=== PATIENT | female | born 1985 | race Caucasian/White ===

== ENCOUNTER 2018-10-09 22:44 | Emergency (ER) | payer BC ==
[~2018-10-09] VITALS: Ht 165.1 cm; Wt 68.0 kg
[2018-10-09 23:02] LABS: BILIRUBIN,URINE NEGATIVE (NEG); CLARITY,URINE CLEAR; COLOR,URINE YELLOW; NITRITE,URINE NEGATIVE (NEG); PH,URINE 5.5; PROTEIN,URINE NEGATIVE (NEG-TRACE); UROBILINOGEN,URINE 0.2 mg/dL (0.2 mg/dL)
[2018-10-09 23:07] LABS: BACTERIA,URINE FEW /HPF (0-FEW); RBC,URINE OCC /HPF (0-2); SQUAMOUS EPITHELIAL CELL,UR MOD /LPF
[2018-10-09] MEDS ORDERED: IV NORMAL SALINE 1000ML BAG 1,000 ML IV SCH (23:08)
[2018-10-09] MEDS ORDERED: fentaNYL PF VIAL 100 MCG/2 ML VIAL IV ONE (23:15)
[2018-10-09] MEDS ORDERED: ONDANSETRON PF 4 MG/2 ML VIAL. IV ONE (23:15)
--- NOTE | 2018-10-09 23:29 | PHYS DOC ---
Past Medical History Past Medical History: No Pertinent History (INGA MERCADO APRN) Past Surgical History: (INGA MERCADO APRN) Alcohol Use: Rarely Drug Use: None (INGA MERCADO APRN) Adult General Chief Complaint Chief Complaint: ABDOMINAL PAIN HPI HPI Patient is a 32 year old female who presents with was in the shower tonight she was having right flank pain wrapping around to her right abdomen that was sharp and shooting. Patient states the pain will intensify and then less than at times. Patient's ring her pain an 8 out of 10. (INGA MERCADO APRN) Review of Systems Review of Systems Constitutional: Denies fever or chills [] Eyes: Denies change in visual acuity, redness, or eye pain [] HENT: Denies nasal congestion or sore throat [] Respiratory: Denies cough or shortness of breath [] Cardiovascular: No additional information not addressed in HPI [] GI: Right upper and mid abdominal pain, denies nausea, vomiting, bloody stools or diarrhea [] : Right flank pain. Denies dysuria or hematuria [] Musculoskeletal: Denies back pain or joint pain [] Integument: Denies rash or skin lesions [] Neurologic: Denies headache, focal weakness or sensory changes [] Endocrine: Denies polyuria or polydipsia [] All other systems were reviewed and found to be within normal limits, except as documented in this note. (INGA MERCADO APRN) Current Medications Current Medications Current Medications Medications (Trade) Dose Ordered Sig/Sergei Start Time Stop Time Status Last Admin Dose Admin Fentanyl Citrate (Fentanyl 2ml Vial) 50 mcg 1X ONCE 10/10/18 00:45 10/10/18 00:46 DC 10/10/18 00:45 50 MCG Ondansetron HCl (Zofran) 4 mg 1X ONCE 10/09/18 23:15 10/09/18 23:16 DC 10/09/18 23:46 4 MG Sodium Chloride 1,000 ml @ 1,000 mls/hr Q1H 10/09/18 23:08 10/10/18 00:07 DC 10/09/18 23:46 1,000 MLS/HR (ALFREDO ESTES DO) Allergies Allergies Allergies Coded Allergies Type Severity Reaction Last Updated Verified naproxen Allergy Intermediate facial swelling 11/11/13 No (ALFREDO ESTES DO) Physical Exam Physical Exam Constitutional: Well developed, well nourished, no acute distress, non-toxic appearance. [] HENT: Normocephalic, atraumatic, bilateral external ears normal, oropharynx moist, no oral exudates, nose normal. [] Eyes: PERRLA, EOMI, conjunctiva normal, no discharge. [] Neck: Normal range of motion, no tenderness, supple, no stridor. [] Cardiovascular:Heart rate regular rhythm, no murmur [] Lungs & Thorax: Bilateral breath sounds clear to auscultation [] Abdomen: Bowel sounds normal, soft, Right upper and mid tenderness, no masses, no pulsatile masses. [] Skin: Warm, dry, no erythema, no rash. [] Back: No tenderness, no CVA tenderness. [] Extremities: No tenderness, no cyanosis, no clubbing, ROM intact, no edema. [] Neurologic: Alert and oriented X 3, normal motor function, normal sensory function, no focal deficits noted. [] Psychologic: Affect normal, judgement normal, mood normal. [] (INGA MERCADO APRN) Current Patient Data Vital Signs Vital Signs Date Time Temp Pulse Resp B/P (MAP) Pulse Ox O2 Delivery O2 Flow Rate FiO2 10/10/18 00:45 18 99 Room Air 10/10/18 00:15 86 99/64 (76) 10/09/18 23:10 98.2 98.2 (ALFREDO ESTES DO) Lab Values Laboratory Tests Test 10/09/18 13:35 10/09/18 22:55 10/09/18 22:57 White Blood Count 13.8 x10^3/uL (4.0-11.0) H Red Blood Count 4.35 x10^6/uL (3.50-5.40) Hemoglobin 12.7 g/dL (12.0-15.5) Hematocrit 38.2 % (36.0-47.0) Mean Corpuscular Volume 88 fL (79-100) Mean Corpuscular Hemoglobin 29 pg (25-35) Mean Corpuscular Hemoglobin Concent 33 g/dL (31-37) Red Cell Distribution Width 14.6 % (11.5-14.5) H Platelet Count 199 x10^3/uL (140-400) Neutrophils (%) (Auto) 48 % (31-73) Lymphocytes (%) (Auto) 39 % (24-48) Monocytes (%) (Auto) 5 % (0-9) Eosinophils (%) (Auto) 8 % (0-3) H Basophils (%) (Auto) 1 % (0-3) Neutrophils # (Auto) 6.6 x10^3/uL (1.8-7.7) Lymphocytes # (Auto) 5.4 x10^3/uL (1.0-4.8) H Monocytes # (Auto) 0.7 x10^3/uL (0.0-1.1) Eosinophils # (Auto) 1.1 x10^3/uL (0.0-0.7) H Basophils # (Auto) 0.1 x10^3/uL (0.0-0.2) Segmented Neutrophils % 48 % (35-66) Lymphocytes % 42 % (24-48) Monocytes % 3 % (0-10) Eosinophils % 7 % (0-5) H Platelet Estimate Adequate (ADEQUATE) Giant Platelets Occ Sodium Level 137 mmol/L (136-145) Potassium Level 3.9 mmol/L (3.5-5.1) Chloride Level 102 mmol/L (98-107) Carbon Dioxide Level 29 mmol/L (21-32) Anion Gap 6 (6-14) Blood Urea Nitrogen 12 mg/dL (7-20) Creatinine 0.9 mg/dL (0.6-1.0) Estimated GFR (Cockcroft-Gault) 71.7 BUN/Creatinine Ratio 13 (6-20) Glucose Level 84 mg/dL (70-99) Calcium Level 9.1 mg/dL (8.5-10.1) Total Bilirubin 0.2 mg/dL (0.2-1.0) Aspartate Amino Transferase (AST) 16 U/L (15-37) Alanine Aminotransferase (ALT) 22 U/L (14-59) Alkaline Phosphatase 86 U/L (46-116) Total Protein 7.3 g/dL (6.4-8.2) Albumin 3.8 g/dL (3.4-5.0) Albumin/Globulin Ratio 1.1 (1.0-1.7) Urine Collection Type Unknown Urine Color Yellow Urine Clarity Clear Urine pH 5.5 Urine Specific [place] 1.010 Urine Protein Negative mg/dL (NEG-TRACE) Urine Glucose (UA) Negative mg/dL (NEG) Urine Ketones (Stick) Negative mg/dL (NEG) Urine Blood Large (NEG) Urine Nitrite Negative (NEG) Urine Bilirubin Negative (NEG) Urine Urobilinogen Dipstick 0.2 mg/dL (0.2 mg/dL) Urine Leukocyte Esterase Trace (NEG) Urine RBC Occ /HPF (0-2) Urine WBC 1-4 /HPF (0-4) Urine Squamous Epithelial Cells Mod /LPF Urine Bacteria Few /HPF (0-FEW) Urine Mucus Slight /LPF POC Urine HCG, Qualitative Hcg negative (Negative) Laboratory Tests 10/09/18 13:35 Laboratory Tests 10/09/18 13:35 (ALFREDO ESTES DO) EKG EKG [] (INGA MERCADO APRN) Radiology/Procedures Radiology/Procedures [] (INGA MERCADO APRN) Impressions: [facility] [address] [place] [address] IMAGING REPORT Signed PATIENT: JACKIE PINTO ACCOUNT: [id number] : 1985 LOCATION: ER AGE: 32 SEX: F EXAM STATUS: REG ER ORD. PHYSICIAN: INGA MERCADO APRN REASON: right flank pain, right abd pain PROCEDURE: CT ABDOMEN PELVIS WO CONTRAST EXAM: CT Abdomen and Pelvis without IV contrast CLINICAL HISTORY: Right flank pain, right abdominal pain COMPARISON: none TECHNIQUE: Helical CT of the abdomen and pelvis without intravenous contrast. Axial, coronal and sagittal reformatted images were generated. PQRS compliance statement - One or more of the following individualized dose reduction techniques were utilized for this study: 1. Automated exposure control 2. Adjustment of the mA and/or kV according to patient size 3. Use of iterative reconstruction technique FINDINGS: Lack of intravenous contrast limits evaluation of solid organs, vasculature, and lymph nodes. Lower chest: Lung bases are clear Abdomen and Pelvis: A 1 cm inferior right hepatic lobe hypodense lesion measures greater than simple fluid, can be further assessed by ultrasound. Liver measures 21 cm in length. Spleen is unremarkable. Adrenal glands are normal. Pancreas is unremarkable. Gallbladder is normal. No biliary ductal dilatation. Kidneys are normal in size and shape. No renal tract calculus. No hydronephrosis or hydroureter. No definite renal lesion. Bladder is unremarkable. Moderate to large volume colonic stool content is seen. No small or large bowel dilatation. Appendix is normal. No abdominal or pelvic ascites. No abdominal or pelvic lymphadenopathy. Bones: Osseous structures are unremarkable. IMPRESSION: 1. No renal tract calculus. 2. No hydronephrosis or hydroureter. 3. No evidence of bowel obstruction. 4. Appendix is normal in appearance. 5. A 1 cm inferior right hepatic lobe hypodense lesion measures greater than simple fluid, can be further assessed by ultrasound. Electronically signed by: Cam Ponce MD (10/10/2018 12:40 AM) [facility] DICTATED and SIGNED BY: CAM PONCE MD DATE: 10/10/18 0040 (INGA MERCADO APRN) Course & Med Decision Making Course & Med Decision Making Patient is a 32 year old female who presents with was in the shower tonight she was having right flank pain wrapping around to her right abdomen that was sharp and shooting. Patient states the pain will intensify and then less than at times. Patient's ring her pain an 8 out of 10. She states it is hard to sit or lay down. No CVA tenderness. Abdomen is tender to the right upper and lower side. Patient denies nausea, vomiting, diarrhea, constipation, shortness of air, chest pain, dysuria. Lungs are clear to auscultation lobes. She is afebrile and vital signs are within normal limits. No extremity swelling. Skin pink warm and dry. Ambulatory with a steady gait. Mucous membranes are moist. Alert and oriented. PERRLA. CT ABD PELV shows: 1. No renal tract calculus. 2. No hydronephrosis or hydroureter. 3. No evidence of bowel obstruction. 4. Appendix is normal in appearance. 5. A 1 cm inferior right hepatic lobe hypodense lesion measures greater than simple fluid, can be further assessed by ultrasound. Blood work unremarkable. Urinalysis shows no infection but is sent for culture. Patient to follow up with her doctor for the incidental findings of the Liver lesion. Patient to be treated for constipation as the CT stated that she had a large amount of stool in the colon. (INGA MERCADO APRN) Dragon Disclaimer Dragon Disclaimer This electronic medical record was generated, in whole or in part, using a voice recognition dictation system. (INGA MERCADO APRN) Departure Departure Impression: Primary Impression: Constipation Disposition: HOME, SELF-CARE Condition: STABLE Referrals: NO PCP (PCP) Patient Instructions: Constipation, Adult Additional Instructions: Follow up with your primary care provider. Drink plenty of fluids. Scripts Magnesium Citrate (MAGNESIUM CITRATE) 296 Ml Solution 296 ML PO ONCE, #296 ML Prov: INGA MERCADO APRN 10/10/18 Attending Signature Attending Signature I have reviewed the PA/OILER HELPER's note and plan of care. I was available for consultation as needed during the patient's visit in the emergency department. I agree with the clinical impression, plan, and disposition. (ALFREDO ESTES DO) Problem Qualifiers Primary Impression: Constipation Constipation type: unspecified constipation type Qualified Codes: K59.00 - Constipation, unspecified INGA MERCADO APRN Oct 09, 2018 23:29 ALFREDO ESTES DO Oct 11, 2018 04:20
[2018-10-09 23:46] LABS: BASO # 0.1 x10^3/uL (0.0-0.2); BASO % 1 % (0-3); EOS # 1.1 x10^3/uL (0.0-0.7); EOS % 8 % (0-3); HEMATOCRIT 38.2 % (36.0-47.0); HEMOGLOBIN 12.7 g/dL (12.0-15.5); LYMPH # 5.4 x10^3/uL (1.0-4.8); LYMPH % 39 % (24-48); MEAN CORPUSCULAR HEMOGLOBIN 29 pg (25-35); MEAN CORPUSCULAR HGB CONC 33 g/dL (31-37); MEAN CORPUSCULAR VOLUME 88 fL (79-100); MONO # 0.7 x10^3/uL (0.0-1.1); MONO % 5 % (0-9); NEUT # 6.6 x10^3/uL (1.8-7.7); NEUT % 48 % (31-73); PLATELET COUNT 199 x10^3/uL (140-400); RED BLOOD COUNT 4.35 x10^6/uL (3.50-5.40); RED CELL DISTRIBUTION WIDTH 14.6 % (11.5-14.5); WHITE BLOOD COUNT 13.8 x10^3/uL (4.0-11.0)
[2018-10-09 23:57] LABS: CALCIUM 9.1 mg/dL (8.5-10.1); CREATININE 0.9 mg/dL (0.6-1.0); GFR 71.7; POTASSIUM 3.9 mmol/L (3.5-5.1)
[2018-10-10 00:04] LABS: ALBUMIN 3.8 g/dL (3.4-5.0); ALBUMIN/GLOBULIN RATIO 1.1 (1.0-1.7); TOTAL BILIRUBIN 0.2 mg/dL (0.2-1.0); TOTAL PROTEIN 7.3 g/dL (6.4-8.2)
[2018-10-10 00:15] VITALS: BP 99/64
[2018-10-10 00:22] LABS: % EOS 7 % (0-5); % LYMPHS 42 % (24-48); % MONOS 3 % (0-10); % SEGS 48 % (35-66)
[2018-10-10 00:23] LABS: PLT ESTIMATE ADEQUATE (ADEQUATE)
--- NOTE | 2018-10-10 00:43 | RAD ---
EXAM: CT Abdomen and Pelvis without IV contrast CLINICAL HISTORY: Right flank pain, right abdominal pain COMPARISON: none TECHNIQUE: Helical CT of the abdomen and pelvis without intravenous contrast. Axial, coronal and sagittal reformatted images were generated. PQRS compliance statement - One or more of the following individualized dose reduction techniques were utilized for this study: 1. Automated exposure control 2. Adjustment of the mA and/or kV according to patient size 3. Use of iterative reconstruction technique FINDINGS: Lack of intravenous contrast limits evaluation of solid organs, vasculature, and lymph nodes. Lower chest: Lung bases are clear Abdomen and Pelvis: A 1 cm inferior right hepatic lobe hypodense lesion measures greater than simple fluid, can be further assessed by ultrasound. Liver measures 21 cm in length. Spleen is unremarkable. Adrenal glands are normal. Pancreas is unremarkable. Gallbladder is normal. No biliary ductal dilatation. Kidneys are normal in size and shape. No renal tract calculus. No hydronephrosis or hydroureter. No definite renal lesion. Bladder is unremarkable. Moderate to large volume colonic stool content is seen. No small or large bowel dilatation. Appendix is normal. No abdominal or pelvic ascites. No abdominal or pelvic lymphadenopathy. Bones: Osseous structures are unremarkable. IMPRESSION: 1. No renal tract calculus. 2. No hydronephrosis or hydroureter. 3. No evidence of bowel obstruction. 4. Appendix is normal in appearance. 5. A 1 cm inferior right hepatic lobe hypodense lesion measures greater than simple fluid, can be further assessed by ultrasound. Electronically signed by: Cam Garcia MD (10/10/2018 12:40 AM) [facility]
[2018-10-10] MEDS ORDERED: fentaNYL PF VIAL 100 MCG/2 ML VIAL IV ONE (00:45)
[2018-10-10] MEDS ORDERED: MAGN296S9 PO (00:52)
== END 2018-10-10 01:10 | disposition home or self-care (01) ==
LOC: ER 22:44
DX: K59.00 Constipation, unspecified (principal); Z98.890 Other specified postprocedural states; Z88.8 Allergy status to other drugs, medicaments and biological substances
CPT/HCPCS: 36415; 74176; 80053; 81001; 81025; 85007; 85025; 87086; 96374; 96375; 96376; 99285; J2405; J3010; J7030

== ENCOUNTER 2019-01-28 17:48 | Emergency (ER) | payer BC ==
[~2019-01-28] VITALS: Ht 165.1 cm; Wt 65.8 kg
[~2019-01-28 17:48] MED LIST: MAGN296S9 PO
[2019-01-28 18:32] LABS: BILIRUBIN,URINE NEGATIVE (NEG); CLARITY,URINE CLEAR; COLOR,URINE YELLOW; NITRITE,URINE NEGATIVE (NEG); PH,URINE 5.5; PROTEIN,URINE NEGATIVE (NEG-TRACE); UROBILINOGEN,URINE 0.2 mg/dL (0.2 mg/dL)
[2019-01-28 18:36] LABS: BASO % 0 % (0-3); EOS # 0.6 x10^3/uL (0.0-0.7); EOS % 5 % (0-3); HEMATOCRIT 39.8 % (36.0-47.0); HEMOGLOBIN 13.2 g/dL (12.0-15.5); LYMPH # 4.5 x10^3/uL (1.0-4.8); LYMPH % 36 % (24-48); MEAN CORPUSCULAR HEMOGLOBIN 30 pg (25-35); MEAN CORPUSCULAR HGB CONC 33 g/dL (31-37); MEAN CORPUSCULAR VOLUME 89 fL (79-100); MONO # 0.6 x10^3/uL (0.0-1.1); MONO % 5 % (0-9); NEUT # 6.5 x10^3/uL (1.8-7.7); NEUT % 53 % (31-73); PLATELET COUNT 205 x10^3/uL (140-400); RED BLOOD COUNT 4.48 x10^6/uL (3.50-5.40); RED CELL DISTRIBUTION WIDTH 14.3 % (11.5-14.5); WHITE BLOOD COUNT 12.2 x10^3/uL (4.0-11.0)
[2019-01-28 18:44] LABS: BACTERIA,URINE MANY /HPF (0-FEW); RBC,URINE 0 /HPF (0-2); SQUAMOUS EPITHELIAL CELL,UR MOD /LPF; WBC,URINE RARE /HPF (0-4)
[2019-01-28] MEDS ORDERED: IBUPROFEN 200 MG TABLET. PO ONE (18:45)
[2019-01-28 18:49] LABS: CALCIUM 8.8 mg/dL (8.5-10.1); CREATININE 0.7 mg/dL (0.6-1.0); GFR 95.2; POTASSIUM 3.6 mmol/L (3.5-5.1)
--- NOTE | 2019-01-28 18:50 | PHYS DOC ---
Past Medical History Past Medical History: No Pertinent History Past Surgical History: Additional Past Surgical Histo: 2 surgeries for ovarian cysts Alcohol Use: Rarely Drug Use: None Adult General Chief Complaint Chief Complaint: ABDOMINAL PAIN HPI HPI Patient is a 33 year old female with history of PCOS and PTSD who presents with acute onset left-sided pelvic pain starting 2 hours prior to ED arrival while driving. Pain is described as sharp and rated moderate to severe. It is worse with palpation and is not this is changed with position change or movement. No fever chills nausea vomiting or sweats. No urinary frequency urgency or burning. Pain feels similar to prior ruptured ovarian cysts. No medications or therapy's taken prior to ED arrival. Of note, states that her mother in this emergency department 11 months ago and reports feeling anxious.[] Review of Systems Review of Systems ROS as per HPI All other systems were reviewed and found to be within normal limits, except as documented in this note. Current Medications Current Medications Current Medications Medications (Trade) Dose Ordered Sig/Sergei Start Time Stop Time Status Last Admin Dose Admin Ibuprofen (Motrin) 600 mg 1X ONCE 01/28/19 18:45 01/28/19 18:51 DC Allergies Allergies Allergies Coded Allergies Type Severity Reaction Last Updated Verified naproxen Allergy Intermediate facial swelling 11/11/13 No Physical Exam Physical Exam Constitutional: Well developed, somnolent, mild slurring of speech, NAD. [] HENT: Normocephalic, atraumatic, bilateral external ears normal, oropharynx moist, no oral exudates, nose normal. [] Eyes: PERRL, dilated. [] Neck: Normal range of motion, no tenderness. [] Cardiovascular:Heart rate regular rhythm, no murmur. [] Lungs & Thorax: Bilateral breath sounds clear to auscultation [] Abdomen: Bowel sounds normal, soft, lower quadrant pain/tenderness with voluntary guarding. [] Skin: Warm, dry, no erythema, no rash. [] Back: No tenderness. [] Extremities: No tenderness, no edema. [] Neurologic: Alert and oriented X 3, normal motor function, normal sensory function, no focal deficits noted. [] Current Patient Data Vital Signs Vital Signs Date Time Temp Pulse Resp B/P (MAP) Pulse Ox O2 Delivery O2 Flow Rate FiO2 01/28/19 20:20 80 16 109/50 (69) 96 Room Air 01/28/19 18:10 98.4 98.4 Lab Values Laboratory Tests Test 01/28/19 17:55 01/28/19 17:59 01/28/19 18:10 Urine Collection Type Unknown Urine Color Yellow Urine Clarity Clear Urine pH 5.5 Urine Specific [place] <=1.005 Urine Protein Negative mg/dL (NEG-TRACE) Urine Glucose (UA) Negative mg/dL (NEG) Urine Ketones (Stick) Negative mg/dL (NEG) Urine Blood Negative (NEG) Urine Nitrite Negative (NEG) Urine Bilirubin Negative (NEG) Urine Urobilinogen Dipstick 0.2 mg/dL (0.2 mg/dL) Urine Leukocyte Esterase Negative (NEG) Urine RBC 0 /HPF (0-2) Urine WBC Rare /HPF (0-4) Urine Squamous Epithelial Cells Mod /LPF Urine Bacteria Many /HPF (0-FEW) Urine Opiates Screen Pos (NEG) Urine Methadone Screen Neg (NEG) Urine Barbiturates Neg (NEG) Urine Phencyclidine Screen Neg (NEG) Urine Amphetamine/Methamphetamine Pos (NEG) Urine Benzodiazepines Screen Neg (NEG) Urine Cocaine Screen Neg (NEG) Urine Cannabinoids Screen Pos (NEG) Urine Ethyl Alcohol Neg (NEG) POC Urine HCG, Qualitative Hcg negative (Negative) White Blood Count 12.2 x10^3/uL (4.0-11.0) H Red Blood Count 4.48 x10^6/uL (3.50-5.40) Hemoglobin 13.2 g/dL (12.0-15.5) Hematocrit 39.8 % (36.0-47.0) Mean Corpuscular Volume 89 fL (79-100) Mean Corpuscular Hemoglobin 30 pg (25-35) Mean Corpuscular Hemoglobin Concent 33 g/dL (31-37) Red Cell Distribution Width 14.3 % (11.5-14.5) Platelet Count 205 x10^3/uL (140-400) Neutrophils (%) (Auto) 53 % (31-73) Lymphocytes (%) (Auto) 36 % (24-48) Monocytes (%) (Auto) 5 % (0-9) Eosinophils (%) (Auto) 5 % (0-3) H Basophils (%) (Auto) 0 % (0-3) Neutrophils # (Auto) 6.5 x10^3/uL (1.8-7.7) Lymphocytes # (Auto) 4.5 x10^3/uL (1.0-4.8) Monocytes # (Auto) 0.6 x10^3/uL (0.0-1.1) Eosinophils # (Auto) 0.6 x10^3/uL (0.0-0.7) Basophils # (Auto) 0.0 x10^3/uL (0.0-0.2) Sodium Level 138 mmol/L (136-145) Potassium Level 3.6 mmol/L (3.5-5.1) Chloride Level 104 mmol/L (98-107) Carbon Dioxide Level 25 mmol/L (21-32) Anion Gap 9 (6-14) Blood Urea Nitrogen 7 mg/dL (7-20) Creatinine 0.7 mg/dL (0.6-1.0) Estimated GFR (Cockcroft-Gault) 95.2 BUN/Creatinine Ratio 10 (6-20) Glucose Level 84 mg/dL (70-99) Calcium Level 8.8 mg/dL (8.5-10.1) Total Bilirubin 0.3 mg/dL (0.2-1.0) Aspartate Amino Transferase (AST) 17 U/L (15-37) Alanine Aminotransferase (ALT) 17 U/L (14-59) Alkaline Phosphatase 81 U/L (46-116) Total Protein 7.6 g/dL (6.4-8.2) Albumin 4.0 g/dL (3.4-5.0) Albumin/Globulin Ratio 1.1 (1.0-1.7) Ethyl Alcohol Level < 10 mg/dL (0-10) Laboratory Tests 01/28/19 18:10 Laboratory Tests 01/28/19 18:10 EKG EKG [] Radiology/Procedures Radiology/Procedures [Pelvic ultrasound: No acute findings per radiology report.] Course & Med Decision Making Course & Med Decision Making Pertinent Labs and Imaging studies reviewed. (See chart for details) [US and labs reviewed. Pain medication offered and declined. Patient denies aching any medications prior to ED but urine drug screen is positive for opiates methamphetamines and THC. Patient encouraged to follow-up with her PCP/[facility] for reevaluation of left-sided pelvic pain. Return precautions reviewed.] Dragon Disclaimer Dragon Disclaimer This electronic medical record was generated, in whole or in part, using a voice recognition dictation system. Departure Departure Impression: Primary Impression: Pelvic pain in female Additional Impression: Substance abuse Disposition: 01 HOME, SELF-CARE Condition: STABLE Referrals: NO PCP (PCP) Patient Instructions: Pelvic Pain, Female, [id number], Substance Abuse-Brief Additional Instructions: Please take Tylenol for pain. Follow-up with your PCP or [facility] for reevaluation of pelvic pain next office day. Take only medications/substances prescribed to you. Return to the ED if new or worsening symptoms. Problem Qualifiers GREGORIO COSTA DO Jan 28, 2019 18:50
[2019-01-28 18:56] LABS: ALBUMIN/GLOBULIN RATIO 1.1 (1.0-1.7); TOTAL BILIRUBIN 0.3 mg/dL (0.2-1.0); TOTAL PROTEIN 7.6 g/dL (6.4-8.2)
[2019-01-28 19:09] LABS: AMPHETAMINE/METHAMPHETAMINE POS (NEG); BARBITURATES NEG (NEG); BENZODIAZEPINES NEG (NEG); CANNABINOIDS POS (NEG); COCAINE NEG (NEG); METHADONE NEG (NEG); OPIATES POS (NEG); PHENCYCLIDINE NEG (NEG)
[2019-01-28 20:20] VITALS: BP 109/50
--- NOTE | 2019-01-28 20:24 | RAD ---
Ultrasound pelvis complete and transvaginal some pelvis HISTORY: Left lower quadrant pain Sonographic examination of the pelvis and perform by transabdominal and transvaginal technique. Multiple static images were obtained. Ultrasound pelvis complete transabdominal: The uterus appears normal. The ovaries are not well seen. Transvaginal ultrasound pelvis: The right ovary appears normal with normal blood flow measures 3.6 x 2.3 x 2.6 cm. The left ovary appears normal normal blood flow measures 2.2 x 2.0 x 3.0 cm. There is a dominant follicle on the left measures 2.1 x 1.7 x 1.6 cm. Endometrial the uterus appears normal measures 3.6 mm in thickness. IMPRESSION: No significant findings. This interpretation assumes the patient is not . Electronically signed by: Bhavesh Lima III, MD (01/28/2019 8:21 PM) [id number]
== END 2019-01-28 21:01 | disposition home or self-care (01) ==
LOC: ER 17:48
DX: R10.2 Pelvic and perineal pain (principal); F10.10 Alcohol abuse, uncomplicated; Y90.9 Presence of alcohol in blood, level not specified; Z98.890 Other specified postprocedural states
CPT/HCPCS: 36415; 76830; 76856; 80053; 80307; 81001; 81025; 85025; 87086; 99285; G0480